=== PATIENT | female | born 1970 | race American Indian/Alaskan Native ===

== ENCOUNTER 2017-03-01 21:36 | Emergency (ER) | payer OTHER ==
[2017-03-01 21:46] VITALS: BMI 28.7
[2017-03-01 21:48] VITALS: BP 138/70; PULSE 111; RESP 22; TEMP 99.9; O2SAT 99
--- NOTE | 2017-03-01 21:55 | ED PDOC ---
Arrival/HPI - General Chief Complaint: Upper Extremity Problem/Injury Time Seen by Provider: 03/01/17 21:48 Historian: Patient - History of Present Illness Narrative History of Present Illness (Text): 03/01/17 21:51 This 46 yo female presents to this ED c/o right wrist pain since this morning. Patient stated she woke up without wrist pain, but after grabbing an something in the kitchen, she developed a severe wrist pain. She is pointing pain at radial aspect of right dorsal wrist. Denies fracture, puncture wounds, redness, rash, heavy lifting, elbow pain, or shoulder pain. Time/Duration: Other (since this morning.) Context: Home Past Medical History - Provider Review Nursing Documentation Reviewed: Yes - Psychiatric Hx Substance Use: No Family/Social History - Physician Review Nursing Documentation Reviewed: Yes Family/Social History: No Known Family HX Smoking Status: y Hx Alcohol Use: No Hx Substance Use: No Allergies/Home Meds Allergies/Adverse Reactions: Allergies No Known Allergies Allergy (Verified 03/01/17 21:45) Review of Systems - Review of Systems Constitutional: Normal. absent: Fatigue, Weight Change, Fevers, Night Sweats Eyes: Normal ENT: Normal Respiratory: Normal Cardiovascular: Normal Gastrointestinal: Normal Genitourinary Female: Normal Musculoskeletal: Other (Right wrist pain) Skin: Normal Neurological: Normal Endocrine: Normal Hemo/Lymphatic: Normal Psychiatric: Normal Physical Exam Vital Signs Temp Pulse Resp BP Pulse Ox 03/01/17 21:45 99.9 F H 111 H 22 138/70 99 Temperature: Afebrile Blood Pressure: Normal Pulse: Regular Respiratory Rate: Normal Appearance: Positive for: Well-Appearing, Non-Toxic, Comfortable Pain Distress: None Mental Status: Positive for: Alert and Oriented X 3 - Systems Exam Head: Present: Atraumatic, Normocephalic Pupils: Present: PERRL Extroacular Muscles: Present: EOMI Conjunctiva: Present: Normal Mouth: Present: Moist Mucous Membranes Neck: Present: Normal Range of Motion, Trachea Midline. No: Meningeal Signs Back: Present: Normal Inspection. No: CVA Tenderness Upper Extremity: Present: Normal Inspection, NORMAL PULSES, Tenderness ((+) right dorsal wrist, radial aspect tenderness. No swelling, erythema, rash, or ecchymosis.), Neurovascularly Intact, Capillary Refill < 2s. No: Cyanosis Lower Extremity: Present: Normal Inspection, NORMAL PULSES, Normal ROM, Capillary Refill < 2 s. No: Edema, CALF TENDERNESS Neurological: Present: GCS=15, CN II-XII Intact, Speech Normal Skin: Present: Warm, Dry, Normal Color. No: Rashes Psychiatric: Present: Alert, Oriented x 3 Medical Decision Making ED Course and Treatment: 03/01/17 23:22 Re-evaluation. Patient feels better. Discussed results and plan with patient who expresses understanding. All questions answered and there is agreement with the plan to discharge home with instructions. Patient stable for discharge. Return if symptoms persist or worsen. I had a long discussion about the use of Percocet. Risk of addiction, drowsiness, nausea, vomiting. She is aware not to drive or operate machinery when taking Percocet. She understood risk, but still requested Percocet. Re-evaluation Time: 23:22 Reassessment Condition: Re-examined, Improved - RAD Interpretation Narrative RAD Interpretations (Text): 03/01/17 23:23 Wrist x-rays: No fx Radiology Orders: 03/01/17 21:48 WRIST, RIGHT 3 VIEWS [RAD] Stat - Medication Orders Current Medication Orders: Discontinued Medications Ketorolac Tromethamine (Toradol) 15 mg IM STAT STA Stop: 03/01/17 21:50 Last Admin: 03/01/17 22:13 Dose: 15 mg Oxycodone/Acetaminophen (Percocet 5/325 Mg Tab) 1 tab PO STAT STA Stop: 03/01/17 22:36 Last Admin: 03/01/17 23:23 Dose: Not Given - Procedure PROCEDURE NOTE (Text): 03/01/17 23:34 Thumb spika wrist splint, pre-made was ordered, and applied by me. Capillary refill < 2 sec. Radial pulse +2 Disposition/Present on Arrival - Present on Arrival Any Indicators Present on Arrival: No History of DVT/PE: No History of Uncontrolled Diabetes: No Urinary Catheter: No History of Decub. Ulcer: No History Surgical Site Infection Following: None - Disposition Have Diagnosis and Disposition been Completed?: Yes Diagnosis: De Quervain's tenosynovitis, right Disposition: HOME/ ROUTINE Disposition Time: 23:24 Patient Plan: Discharge Patient Problems: Current Active Problems Problem Status Onset De Quervain's tenosynovitis, right Acute Condition: GOOD Discharge Instructions (ExitCare): De Quervain Disease (ED) Additional Instructions: Call private doctor for follow up visit in 1-2 days. Take medication as instructed with food. Keep wrist elevated, ice, rest, splint. Call orthopedist for follow up in 5-7 days. Avoid repetitive movement of right wrist. Return to emergency if pain worsen. Prescriptions: Famotidine [Pepcid] 40 mg PO DAILY #10 tablet Naproxen 500 mg PO BID PRN #20 tab PRN Reason: Pain, Severe (8-10) oxyCODONE/Acetaminophen [Percocet 5/325 mg Tab] 1 ea PO BID PRN #5 tab PRN Reason: Pain, Severe (8-10) Referrals: Krysta Rendon PA [Primary Care Provider] - Follow up with primary Hermelindo Decker MD [Staff Provider] - Follow up with primary Forms: [email or web address] ([place]), WORK NOTE
[2017-03-01] MEDS ORDERED: Oxycodone/Acetaminophen 5/325 mg Tab PO STA (22:35)
--- NOTE | 2017-03-02 08:14 | RAD ---
PROCEDURE: Right Wrist Radiographs. HISTORY: pain COMPARISON: None. FINDINGS: BONES: Normal. No fracture. JOINTS: Normal. No dislocation. SOFT TISSUES: Normal. OTHER FINDINGS: None. IMPRESSION: Normal right wrist radiographs.
== END 2017-03-01 23:54 | disposition home or self-care (01) ==
LOC: ED 21:36
DX: M65.4 Radial styloid tenosynovitis [de Quervain] (principal)
CPT/HCPCS: 73110; 81025; 96372; 99283; J1885